=== PATIENT | male | born 1965 | race Caucasian/White ===

== ENCOUNTER 2021-11-10 09:29 | Observation (INO) ==
[2021-11-10] MEDS ORDERED: Aspirin 81 MG TAB.CHEW PO ONE (09:50)
[2021-11-10 10:09] LABS: Basophils # 0.1 K/mcL (0.0-0.2); Basophils % 0.7 %; Eosinophils # 0.2 K/mcL (0.0-0.6); Eosinophils % 3.3 %; Hematocrit 45.9 % (37.5-50.1); Hemoglobin 15.8 g/dL (12.9-16.9); Immature Granulocytes % 0.3 % (0-4); Lymphocytes # 1.9 K/mcL (0.6-4.6); Lymphocytes % 27.3 %; Mean Corpuscular HGB Conc 34.4 g/dL (31.6-35.5); Mean Corpuscular Hemoglobin 29.4 pg (28.0-33.3); Mean Corpuscular Volume 85.5 fL (83.0-100.0); Mean Platelet Volume 9.6 fL (9.4-12.4); Monocytes # 0.5 K/mcL (0.0-1.3); Monocytes % 6.8 %; Neutrophils # 4.3 K/mcL (1.6-8.9); Platelet Count 277 K/mcL (140-400); Red Blood Count 5.37 M/mcL (4.19-5.50); Red Cell Distribution Width 12.4 % (11.5-14.5); Segmented Neutrophils % 61.6 %
[2021-11-10] MEDS ORDERED: Nitroglycerin 0.4 MG TAB.SUBL SL PRN (10:16)
[2021-11-10 10:53] LABS: Troponin I < 0.03 ng/mL (< 0.04)
[2021-11-10 11:54] LABS: BUN/Creatinine Ratio 14 (6-26); Blood Urea Nitrogen 12 mg/dL (6-20); Calcium 9.7 mg/dL (8.6-10.3); Carbon Dioxide 24 mEq/L (23-29); Chloride 107 mEq/L (98-107); Glucose 99 mg/dL (70-105); Osmolality,Calculated 292 (280-300); Potassium 3.8 mEq/L (3.5-5.1); Sodium 141 mEq/L (136-145); eGFR For African Americans > 60 (> 60); eGFR For Non-African Americans > 60 (> 60)
[2021-11-10] MEDS ORDERED: Naloxone 0.4 MG/ML INJ IVP PRN (13:00)
[2021-11-10] MEDS ORDERED: Ondansetron ODT 4 MG TAB.RAPDIS SL PRN (13:00)
[2021-11-10] MEDS ORDERED: Mag Hydrox/Al Hydrox/Simeth 30 ML UDC PO PRN (13:00)
[2021-11-10] MEDS ORDERED: MOM Conc 10 ML UD.LIQ PO PRN (13:00)
[2021-11-10] MEDS ORDERED: Melatonin 3 MG TABLET PO PRN (13:00)
[2021-11-10] MEDS ORDERED: Perflutren Lipid Microsphere 1.3 ML in 0.9 % Sodium Chloride 8.7 ML IVP PRN (13:02)
[2021-11-10] MEDS ORDERED: Acetaminophen 325 MG TABLET PO PRN (14:12)
[2021-11-11] MEDS ORDERED: Regadenoson 0.4 MG/5 ML SYRINGE IVP ONE (06:36)
[2021-11-11 08:24] LABS: Chol/HDL Ratio 5.6 (0-4.9)
[2021-11-11] MEDS ORDERED: Aspirin Enteric Coated 81 MG Tablet PO SCH (09:00)
[2021-11-11 11:11] VITALS: BP 140/80; PULSE 72; TEMP 97.8; O2SAT 96
== END 2021-11-11 11:41 | disposition home or self-care (01) ==
LOC: EMEROOARM 09:29 → 3BNU 09:29
PROVIDERS: ADMIT Internal Medicine; ATTEND Internal Medicine